=== PATIENT | female | born 1950 | race Caucasian/White ===

== ENCOUNTER 2017-12-03 19:40 | Inpatient (IN) ==
[2017-12-03] MEDS ORDERED: ONDANSETRON 4 MG/2 ML VIAL IV STA (20:46)
[2017-12-03] MEDS ORDERED: PANTOPRAZOLE 40 MG VIAL IV STA (20:46)
[2017-12-03] MEDS ORDERED: SODIUM CHLORIDE 0.9% 500 ML IV STA (20:46)
[2017-12-03 20:57] LABS: Basophils % 0.3 % (0.0-0.8); Eosinophils # 0.1 10*3/uL (0.0-0.87); Eosinophils % 0.9 % (0.00-10.9); Hematocrit 40.3 VOL% (35.7-47.0); Immature Granulocytes % 0.4 %; Immature Granulocytes Absolute 0.05 #; Lymphocytes # 2.6 10*3/uL (1.4-4.0); Lymphocytes % 22.6 % (21.3-54.2); Mean Corpuscular HGB Conc 32.3 GM/DL (32-36); Mean Corpuscular Hemoglobin 28 PG (27-34); Mean Platelet Volume 11.1 FL (9.6-12.0); Monocytes # 0.7 10*3/uL (0.11-0.8); Neutrophils % 69.8 % (38.7-73.9); Platelet Count 237 T/CUMM (130-400); Red Blood Count 4.58 MC/CUMM (3.8-5.5); Red Cell Distribution Width 13.4 % (9.3-17.3); White Blood Count 11.5 T/CUMM (4-12)
[2017-12-03 21:10] LABS: Alanine Aminotransferase 19 U/L (13-56); Albumin 3.8 G/DL (3.4-5.0); Alkaline Phosphatase 95 U/L (45-117); Aspartate Amino Transferase 17 U/L (0-37); Blood Urea Nitrogen 30 MG/DL (7-18); Calcium 9.3 MG/DL (8.5-10.1); Glucose 113 MG/DL (74-106); Osmolality,Calculated 285.4 MOS/KG (273-304); Potassium 3.5 MMOL/L (3.5-5.1); Sodium 140 MMOL/L (136-145); Total Protein 7.3 G/DL (6.4-8.3); Troponin I < 0.015 NG/ML (0.00-0.045)
[2017-12-03] MEDS ORDERED: methylPREDNISolone SOD SUC 125 MG/2 ML VIAL IV STA (21:21)
[2017-12-03 22:34] LABS: INR 0.9; PT Patient Result 9.8 SECS
[2017-12-03] MEDS ORDERED: ONDANSETRON 4 MG/2 ML VIAL IV PRN (23:45)
[2017-12-04] MEDS: SODIUM CHLORIDE 0.9% 1,000 ML IV SCH ×2 (01:02→14:25)
[2017-12-04 06:57] LABS: Basophils % 0.1 % (0.0-0.8); Hemoglobin 12.3 GM/DL (12.0-16.0); Immature Granulocytes % 0.6 %; Immature Granulocytes Absolute 0.04 #; Lymphocytes # 0.7 10*3/uL (1.4-4.0); Lymphocytes % 10.6 % (21.3-54.2); Mean Corpuscular HGB Conc 32.4 GM/DL (32-36); Mean Corpuscular Hemoglobin 28 PG (27-34); Mean Corpuscular Volume 87.8 FL (87-102); Mean Platelet Volume 10.5 FL (9.6-12.0); Monocytes % 0.6 % (1.7-12.7); Neutrophils # 6.2 10*3/uL (1.4-7.4); Neutrophils % 88.1 % (38.7-73.9); Platelet Count 211 T/CUMM (130-400); Red Blood Count 4.33 MC/CUMM (3.8-5.5); Red Cell Distribution Width 13.2 % (9.3-17.3)
[2017-12-04 07:36] LABS: Albumin 3.4 G/DL (3.4-5.0); Bilirubin,Total 0.6 MG/DL (0.2-1.0); Calcium 9.2 MG/DL (8.5-10.1); Osmolality,Calculated 286.4 MOS/KG (273-304); Potassium 4.3 MMOL/L (3.5-5.1); Total Protein 6.9 G/DL (6.4-8.3)
[2017-12-04] MEDS ORDERED: MELATONIN 1 MG PO PRN (08:06)
[2017-12-04] MEDS ORDERED: tiZANidine 4 MG TABLET PO PRN (08:06)
[2017-12-04] MEDS ORDERED: CLORAZEPATE 3.75 MG TABLET PO PRN (08:06)
[2017-12-04] MEDS: POLYCARBOPHIL 625 MG TABLET PO SCH ×2 (08:51→20:35)
[2017-12-04] MEDS: DULoxetine 30 MG CAPSULE PO SCH (08:51)
[2017-12-04] MEDS: GABAPENTIN 300 MG CAPSULE PO SCH ×2 (08:52→20:36)
[2017-12-04] MEDS: PANTOPRAZOLE 40 MG TABLET PO SCH (08:52)
[2017-12-04] MEDS: GABAPENTIN 100 MG CAPSULE PO SCH (08:52)
[2017-12-04] MEDS ORDERED: KRILL OIL 1000 MG PO SCH (09:00)
[2017-12-04] MEDS ORDERED: VILANTEROL BOTH NARES SCH (09:00)
[2017-12-04] MEDS ORDERED: MONTELUKAST 10 MG TABLET PO SCH (09:00)
[2017-12-04] MEDS ORDERED: FLUTICASONE BOTH NARES SCH (09:00)
[2017-12-04 13:05] LABS: Hematocrit 36.7 VOL% (35.7-47.0); Hemoglobin 11.9 GM/DL (12.0-16.0)
[2017-12-04] MEDS ORDERED: traMADol 50 MG TABLET PO PRN (15:51)
[2017-12-04 19:23] LABS: Hematocrit 35.1 VOL% (35.7-47.0); Hemoglobin 11.3 GM/DL (12.0-16.0)
[2017-12-04] MEDS: MONTELUKAST 10 MG TABLET PO SCH (20:36)
[2017-12-04] MEDS: PRAVASTATIN 20 MG TABLET PO SCH (20:36)
[2017-12-05] MEDS: SODIUM CHLORIDE 0.9% 1,000 ML IV SCH ×2 (03:28→16:33)
[2017-12-05 04:45] LABS: Basophils % 0.1 % (0.0-0.8); Eosinophils % 0.1 % (0.00-10.9); Hemoglobin 10.7 GM/DL (12.0-16.0); Immature Granulocytes % 0.3 %; Immature Granulocytes Absolute 0.03 #; Lymphocytes # 2.7 10*3/uL (1.4-4.0); Lymphocytes % 26.8 % (21.3-54.2); Mean Corpuscular HGB Conc 31.5 GM/DL (32-36); Mean Corpuscular Hemoglobin 28 PG (27-34); Mean Corpuscular Volume 88.8 FL (87-102); Mean Platelet Volume 11.1 FL (9.6-12.0); Monocytes # 0.6 10*3/uL (0.11-0.8); Monocytes % 5.7 % (1.7-12.7); Neutrophils # 6.7 10*3/uL (1.4-7.4); Platelet Count 196 T/CUMM (130-400); Red Blood Count 3.83 MC/CUMM (3.8-5.5); Red Cell Distribution Width 13.2 % (9.3-17.3); White Blood Count 10.1 T/CUMM (4-12)
[2017-12-05 05:06] LABS: Calcium 8.4 MG/DL (8.5-10.1); Potassium 3.6 MMOL/L (3.5-5.1)
[2017-12-05] MEDS: DULoxetine 30 MG CAPSULE PO SCH (08:53)
[2017-12-05] MEDS: POLYCARBOPHIL 625 MG TABLET PO SCH ×2 (08:53→20:48)
[2017-12-05] MEDS: GABAPENTIN 100 MG CAPSULE PO SCH (08:53)
[2017-12-05] MEDS: PANTOPRAZOLE 40 MG TABLET PO SCH (08:54)
[2017-12-05] MEDS: GABAPENTIN 300 MG CAPSULE PO SCH ×2 (08:58→20:46)
[2017-12-05 11:53] LABS: Hematocrit 34.8 VOL% (35.7-47.0); Hemoglobin 11.2 GM/DL (12.0-16.0)
[2017-12-05] MEDS: MONTELUKAST 10 MG TABLET PO SCH (20:47)
[2017-12-05] MEDS: PRAVASTATIN 20 MG TABLET PO SCH (20:47)
[2017-12-06 05:45] LABS: Basophils % 0.4 % (0.0-0.8); Eosinophils # 0.1 10*3/uL (0.0-0.87); Eosinophils % 0.7 % (0.00-10.9); Hematocrit 34.3 VOL% (35.7-47.0); Hemoglobin 10.7 GM/DL (12.0-16.0); Immature Granulocytes % 0.4 %; Immature Granulocytes Absolute 0.03 #; Lymphocytes % 36.6 % (21.3-54.2); Mean Corpuscular HGB Conc 31.2 GM/DL (32-36); Mean Corpuscular Hemoglobin 28 PG (27-34); Mean Platelet Volume 10.7 FL (9.6-12.0); Monocytes # 0.5 10*3/uL (0.11-0.8); Monocytes % 5.8 % (1.7-12.7); Neutrophils # 4.5 10*3/uL (1.4-7.4); Neutrophils % 56.1 % (38.7-73.9); Platelet Count 173 T/CUMM (130-400); Red Blood Count 3.81 MC/CUMM (3.8-5.5); Red Cell Distribution Width 13.2 % (9.3-17.3); White Blood Count 8.1 T/CUMM (4-12)
[2017-12-06] MEDS: SODIUM CHLORIDE 0.9% 1,000 ML IV SCH (06:11)
[2017-12-06] MEDS: POLYCARBOPHIL 625 MG TABLET PO SCH (10:01)
[2017-12-06] MEDS: GABAPENTIN 300 MG CAPSULE PO SCH (10:01)
[2017-12-06] MEDS: PANTOPRAZOLE 40 MG TABLET PO SCH (10:01)
[2017-12-06] MEDS: DULoxetine 30 MG CAPSULE PO SCH (10:01)
[2017-12-06] MEDS: GABAPENTIN 100 MG CAPSULE PO SCH (10:02)
[2017-12-06 11:46] VITALS: BP 120/78
== END 2017-12-06 12:58 | disposition home or self-care (01) | DRG 378 ==
LOC: N.ED 19:40 → N.EDINP 23:45 → N.3E 12-04 00:39
PROVIDERS: ADMIT Internal Medicine; ATTEND Internal Medicine

== ENCOUNTER 2021-08-29 16:05 | Observation (INO) ==
[2021-08-29 17:16] LABS: Basophils # 0.1 10*3/uL (0.0-0.2); Basophils % 0.4 % (0.0-0.8); Eosinophils # 0.5 10*3/uL (0.0-0.87); Eosinophils % 3.9 % (0.00-10.9); Hemoglobin 11.7 GM/DL (12.0-16.0); Immature Granulocytes % 0.7 %; Immature Granulocytes Absolute 0.08 #; Lymphocytes # 1.8 10*3/uL (1.4-4.0); Lymphocytes % 15.5 % (21.3-54.2); Mean Corpuscular HGB Conc 30.8 GM/DL (32-36); Mean Corpuscular Volume 88.8 FL (87-102); Mean Platelet Volume 9.9 FL (9.6-12.0); Monocytes # 0.8 10*3/uL (0.11-0.8); Neutrophils % 72.5 % (38.7-73.9); Platelet Count 234 T/CUMM (130-400); Red Blood Count 4.28 MC/CUMM (3.8-5.5); Red Cell Distribution Width 15.8 % (9.3-17.3); White Blood Count 11.5 T/CUMM (4-12)
[2021-08-29 17:54] LABS: Alanine Aminotransferase 18 U/L (13-56); Albumin 3.2 G/DL (3.4-5.0); Alkaline Phosphatase 99 U/L (45-117); Aspartate Amino Transferase 11 U/L (0-37); Bilirubin,Total < 0.39 MG/DL (0.20-1.00); Blood Urea Nitrogen 19 MG/DL (7-18); Calcium 9.1 MG/DL (8.5-10.1); Carbon Dioxide 27 MMOL/L (21-32); Chloride 112 MMOL/L (98-107); Glucose 92 MG/DL (74-106); Osmolality,Calculated 287.8 MOS/KG (273-304); Potassium 3.6 MMOL/L (3.5-5.1); Sodium 144 MMOL/L (136-145); Total Protein 6.2 G/DL (6.4-8.2)
[2021-08-29] MEDS ORDERED: methylPREDNISolone SOD SUC 125 MG/2 ML VIAL IV STA (20:48)
[2021-08-29] MEDS ORDERED: ALBUTEROL/IPRATROPIUM 3 ML NEB RESP TX STA (20:48)
[2021-08-29] MEDS ORDERED: ENOXAPARIN 100 MG/ML SYRINGE SUBCUT STA (21:46)
[2021-08-29] MEDS ORDERED: diphenhydrAMINE CAP 25 MG CAPSULE PO PRN (23:04)
[2021-08-29] MEDS ORDERED: guaiFENesin/DM ER 600-30 MG TABLET PO PRN (23:04)
[2021-08-29] MEDS ORDERED: ONDANSETRON 4 MG/2 ML VIAL IV PRN (23:04)
[2021-08-29] MEDS ORDERED: hydrALAZINE 20 MG/1 ML VIAL IV PRN (23:04)
[2021-08-29] MEDS ORDERED: NICOTINE 21 MG/24 HR PATCH TRANSDERM PRN (23:04)
[2021-08-29] MEDS ORDERED: GLUCAGON 1 MG VIAL IM PRN (23:04)
[2021-08-29] MEDS ORDERED: DEXTROSE 10% 250 ML BAG IV PRN (23:12)
[2021-08-29 23:50] LABS: Bacteria,Urine Occasional /HPF (Few); Mucus,Urine Occasional /LPF (Occasional); RBC,Urine 2 /HPF (0-4); Squamous Epithelial Cell,Urine Occasional /HPF (0-10)
[2021-08-29 23:51] LABS: Bilirubin,Urine Negative (Negative); Blood, Urine Negative (Negative); Glucose,Urine (UA) Negative (Negative); Ketones,Urine Negative (Negative); Nitrite,Urine Negative (Negative); Protein,Urine Negative (Negative); Urine Appearance Clear (Clear); Urine Color Yellow (Yellow); Urine Specific Gravity 1.015 (1.001-1.035); Urine Urobilinogen 0.2 eU/dL (<2.0); Urine pH 5.5 (4.5-8.0)
[2021-08-30] MEDS ORDERED: FLUTICASONE 50 MCG NASAL SPRAY 16 GM BOTTLE BOTH NARES PRN (00:40)
[2021-08-30] MEDS ORDERED: ALBUTEROL/IPRATROPIUM 3 ML NEB RESP TX SCH (01:00)
[2021-08-30] MEDS: ALBUTEROL 2.5 MG/3 ML NEB RESP TX SCH ×6 (01:07→23:50)
[2021-08-30 01:44] LABS: Arterial Base Excess iSTAT -3 MMOL/L (-2.5-2.5); Arterial Bicarbonate iSTAT 21.8 MMOL/L (20-26); Arterial O2 Saturation iSTAT 98 % (95-100); Arterial PCO2 iSTAT 37 MM HG (35-48); Arterial PO2 iSTAT 98 MM HG (80-95); Arterial Total CO2 iSTAT 23 MMO/L (23-27)
[2021-08-30 05:27] LABS: Basophils % 0.1 % (0.0-0.8); Hematocrit 36.4 VOL% (35.7-47.0); Hemoglobin 11.2 GM/DL (12.0-16.0); Immature Granulocytes % 0.7 %; Immature Granulocytes Absolute 0.06 #; Lymphocytes # 0.3 10*3/uL (1.4-4.0); Lymphocytes % 3.1 % (21.3-54.2); Mean Corpuscular HGB Conc 30.8 GM/DL (32-36); Mean Corpuscular Volume 88.1 FL (87-102); Mean Platelet Volume 10.3 FL (9.6-12.0); Monocytes # 0.1 10*3/uL (0.11-0.8); Monocytes % 0.6 % (1.7-12.7); Neutrophils % 95.5 % (38.7-73.9); Platelet Count 213 T/CUMM (130-400); Red Blood Count 4.13 MC/CUMM (3.8-5.5); Red Cell Distribution Width 15.6 % (9.3-17.3)
[2021-08-30 05:34] LABS: Calcium 9.6 MG/DL (8.5-10.1); Osmolality,Calculated 289.1 MOS/KG (273-304)
[2021-08-30 05:57] LABS: Hypochromia 1+; Lymphocytes 1 % (20-55); Microcytosis 1+; Total Cells Counted 100
[2021-08-30] MEDS: methylPREDNISolone SOD SUC 40 MG/1 ML VIAL IV SCH ×2 (08:55→21:28)
[2021-08-30] MEDS: PANTOPRAZOLE 40 MG TABLET PO SCH (08:55)
[2021-08-30] MEDS: POLYCARBOPHIL 625 MG TABLET PO SCH (08:55)
[2021-08-30] MEDS: GABAPENTIN 300 MG CAPSULE PO SCH ×3 (08:55→20:56)
[2021-08-30] MEDS: ROSUVASTATIN 20 MG TABLET PO SCH (08:55)
[2021-08-30] MEDS: CLOPIDOGREL 75 MG TABLET PO SCH (08:55)
[2021-08-30] MEDS: CETIRIZINE 10 MG TABLET PO SCH (08:55)
[2021-08-30] MEDS ORDERED: POLYCARBOPHIL 625 MG TABLET PO SCH (09:00)
[2021-08-30] MEDS: ACETAMINOPHEN 325 MG TABLET PO PRN (17:10)
[2021-08-30] MEDS ORDERED: DULoxetine 30 MG CAPSULE PO SCH (21:00)
[2021-08-31] MEDS: ACETAMINOPHEN 325 MG TABLET PO PRN (02:02)
[2021-08-31] MEDS: ALBUTEROL 2.5 MG/3 ML NEB RESP TX SCH ×3 (03:42→11:10)
[2021-08-31 04:50] LABS: Basophils % 0.1 % (0.0-0.8); Hematocrit 35.2 VOL% (35.7-47.0); Hemoglobin 10.9 GM/DL (12.0-16.0); Immature Granulocytes % 1.4 %; Immature Granulocytes Absolute 0.15 #; Lymphocytes # 0.5 10*3/uL (1.4-4.0); Mean Corpuscular Volume 87.8 FL (87-102); Mean Platelet Volume 10.1 FL (9.6-12.0); Monocytes # 0.2 10*3/uL (0.11-0.8); Neutrophils % 91.5 % (38.7-73.9); Platelet Count 217 T/CUMM (130-400); Red Blood Count 4.01 MC/CUMM (3.8-5.5); Red Cell Distribution Width 15.7 % (9.3-17.3); White Blood Count 10.8 T/CUMM (4-12)
[2021-08-31 05:09] LABS: Calcium 9.4 MG/DL (8.5-10.1); Potassium 4.8 MMOL/L (3.5-5.1)
[2021-08-31 05:11] LABS: Band Neutrophils 1 % (0-10); Lymphocytes 5 % (20-55); Total Cells Counted 100
[2021-08-31 05:12] LABS: Hypochromia 1+; Microcytosis 1+; Platelet Estimate Normal
[2021-08-31] MEDS: CETIRIZINE 10 MG TABLET PO SCH (09:29)
[2021-08-31] MEDS: ROSUVASTATIN 20 MG TABLET PO SCH (09:29)
[2021-08-31] MEDS: POLYCARBOPHIL 625 MG TABLET PO SCH (09:29)
[2021-08-31] MEDS: GABAPENTIN 300 MG CAPSULE PO SCH (09:29)
[2021-08-31] MEDS: methylPREDNISolone SOD SUC 40 MG/1 ML VIAL IV SCH (09:29)
[2021-08-31] MEDS: CLOPIDOGREL 75 MG TABLET PO SCH (09:29)
[2021-08-31] MEDS: PANTOPRAZOLE 40 MG TABLET PO SCH (09:29)
[2021-08-31 12:53] VITALS: BP 142/80
== END 2021-08-31 13:46 | disposition home or self-care (01) ==
LOC: N.ED 16:05 → N.EDINP 16:05 → SUATTDRO 23:04 → N.TELEN 08-30 00:16
PROVIDERS: ADMIT Family Medicine; ATTEND Internal Medicine

== ENCOUNTER 2022-03-21 10:53 | Observation (INO) ==
[2022-03-21] MEDS ORDERED: SODIUM CHLORIDE 0.9% 1,000 ML IV STA (11:14)
[2022-03-21] MEDS ORDERED: ONDANSETRON 4 MG/2 ML VIAL IV STA (11:14)
[2022-03-21 11:37] LABS: Basophils % 0.2 % (0.0-0.8); Eosinophils % 0.1 % (0.00-10.9); Hematocrit 46.4 VOL% (35.7-47.0); Hemoglobin 14.8 GM/DL (12.0-16.0); Immature Granulocytes % 0.4 %; Immature Granulocytes Absolute 0.07 #; Lymphocytes # 0.3 10*3/uL (1.4-4.0); Lymphocytes % 1.5 % (21.3-54.2); Mean Corpuscular HGB Conc 31.9 GM/DL (32-36); Mean Corpuscular Volume 87.1 FL (87-102); Mean Platelet Volume 10.5 FL (9.6-12.0); Monocytes # 0.6 10*3/uL (0.11-0.8); Monocytes % 3.7 % (1.7-12.7); Neutrophils % 94.1 % (38.7-73.9); Platelet Count 235 T/CUMM (130-400); Red Blood Count 5.33 MC/CUMM (3.8-5.5); Red Cell Distribution Width 14.9 % (9.3-17.3); White Blood Count 16.82 T/CUMM (4-12)
[2022-03-21 11:57] LABS: Albumin 3.5 G/DL (3.4-5.0); Bilirubin,Total 0.5 MG/DL (0.20-1.00); Calcium 9.7 MG/DL (8.5-10.1); Potassium 3.6 MMOL/L (3.5-5.1); Total Protein 7.5 G/DL (6.4-8.2)
[2022-03-21 12:07] LABS: Band Neutrophils 5 % (0-10); Lymphocytes 3 % (20-55); Platelet Estimate Normal; Total Cells Counted 100
[2022-03-21] MEDS ORDERED: SODIUM CHLORIDE 0.9% 1,850 ML IV ONE (12:33)
[2022-03-21] MEDS ORDERED: SODIUM CHLORIDE 0.9% 3,150 ML IV ONE (12:33)
[2022-03-21] MEDS ORDERED: PROMETHAZINE INJ 12.5 MG in SODIUM CHLORIDE 0.9% 50 ML IV STA (12:57)
[2022-03-21] MEDS ORDERED: PROMETHAZINE 25 MG/1 ML VIAL ONE (12:59)
[2022-03-21 13:02] LABS: Mucus,Urine Moderate /LPF (Occasional); RBC,Urine <1 /HPF (0-4); Squamous Epithelial Cell,Urine Occasional /HPF (0-10)
[2022-03-21 13:03] LABS: Bilirubin,Urine Negative (Negative); Blood, Urine Trace mg/dL (Negative); Glucose,Urine (UA) Negative (Negative); Ketones,Urine Negative (Negative); Nitrite,Urine Negative (Negative); Protein,Urine Negative (Negative); Urine Appearance Clear (Clear); Urine Color Yellow (Yellow); Urine Urobilinogen 0.2 eU/dL (<2.0); Urine pH 5.5 (4.5-8.0)
[2022-03-21] MEDS: PIPERACILLIN/TAZOBACTAM 3,375 MG in SODIUM CHLORIDE 0.9% 100 ML IV SCH ×2 (13:15→23:22)
[2022-03-21] MEDS: SODIUM CHLORIDE 0.9% 1,000 ML IV SCH ×2 (15:19→21:39)
[2022-03-21] MEDS ORDERED: PROMETHAZINE INJ 12.5 MG in SODIUM CHLORIDE 0.9% 50 ML IV PRN (15:30)
[2022-03-21] MEDS ORDERED: MAGNESIUM SULF RIDER 2 GM/50 ML PREMIX IV PRN (15:32)
[2022-03-21] MEDS ORDERED: POTASSIUM CHLORIDE RIDER 10 MEQ/100 ML PREMIX IV PRN (15:32)
[2022-03-21] MEDS ORDERED: MAGNESIUM SULF RIDER 4 GM/100 ML PREMIX IV PRN (15:32)
[2022-03-21] MEDS ORDERED: PROMETHAZINE 25 MG/1 ML VIAL IM PRN (20:47)
[2022-03-21] MEDS: PANTOPRAZOLE 40 MG VIAL IV SCH (21:32)
[2022-03-21] MEDS: ACETAMINOPHEN 325 MG TABLET PO PRN (21:35)
[2022-03-21] MEDS: POTASSIUM CHLORIDE 20 MEQ TABLET PO PRN (23:23)
[2022-03-22] MEDS: POTASSIUM CHLORIDE 20 MEQ TABLET PO PRN (01:49)
[2022-03-22 04:50] LABS: Basophils % 0.2 % (0.0-0.8); Eosinophils % 0.3 % (0.00-10.9); Hematocrit 38.3 VOL% (35.7-47.0); Immature Granulocytes % 0.5 %; Immature Granulocytes Absolute 0.03 #; Lymphocytes # 0.9 10*3/uL (1.4-4.0); Lymphocytes % 13.9 % (21.3-54.2); Mean Corpuscular HGB Conc 31.3 GM/DL (32-36); Mean Corpuscular Volume 90.1 FL (87-102); Mean Platelet Volume 10.7 FL (9.6-12.0); Monocytes # 0.6 10*3/uL (0.11-0.8); Monocytes % 8.9 % (1.7-12.7); Neutrophils % 76.2 % (38.7-73.9); Platelet Count 175 T/CUMM (130-400); Red Blood Count 4.25 MC/CUMM (3.8-5.5); Red Cell Distribution Width 15.1 % (9.3-17.3); White Blood Count 6.63 T/CUMM (4-12)
[2022-03-22 05:08] LABS: Calcium 8.2 MG/DL (8.5-10.1); Potassium 3.7 MMOL/L (3.5-5.1)
[2022-03-22] MEDS: SODIUM CHLORIDE 0.9% 1,000 ML IV SCH ×3 (05:21→22:41)
[2022-03-22] MEDS: PIPERACILLIN/TAZOBACTAM 3,375 MG in SODIUM CHLORIDE 0.9% 100 ML IV SCH ×3 (05:22→21:38)
[2022-03-22] MEDS: PANTOPRAZOLE 40 MG VIAL IV SCH ×2 (09:45→21:38)
[2022-03-22] MEDS ORDERED: HYDROmorphone 1 MG/1 ML SYRINGE IV PRN (16:55)
[2022-03-22] MEDS: traZODone 50 MG TABLET PO SCH (21:37)
[2022-03-22] MEDS: ROSUVASTATIN 20 MG TABLET PO SCH (21:37)
[2022-03-23] MEDS: PIPERACILLIN/TAZOBACTAM 3,375 MG in SODIUM CHLORIDE 0.9% 100 ML IV SCH ×3 (04:09→20:46)
[2022-03-23] MEDS: ONDANSETRON 4 MG/2 ML VIAL IV PRN ×2 (06:20→18:57)
[2022-03-23] MEDS: SODIUM CHLORIDE 0.9% 1,000 ML IV SCH ×3 (06:20→18:00)
[2022-03-23 06:26] LABS: Albumin 2.6 G/DL (3.4-5.0); Bilirubin,Total 0.4 MG/DL (0.20-1.00); Calcium 8.6 MG/DL (8.5-10.1); Osmolality,Calculated 286.7 MOS/KG (273-304); Potassium 3.9 MMOL/L (3.5-5.1); Total Protein 5.4 G/DL (6.4-8.2)
[2022-03-23] MEDS: LACTATED RINGERS 1,000 ML IV SCH (09:07)
[2022-03-23] MEDS ORDERED: LIDOCAINE 2% 5 ML VIAL ONE (09:58)
[2022-03-23] MEDS ORDERED: propofoL 200 MG/20 ML VIAL IV ONE (09:58)
[2022-03-23] MEDS: lisinopriL 20 MG TABLET PO SCH (11:56)
[2022-03-23] MEDS: PANTOPRAZOLE 40 MG VIAL IV SCH ×2 (11:57→20:47)
[2022-03-23] MEDS: ROSUVASTATIN 20 MG TABLET PO SCH (20:48)
[2022-03-23] MEDS: traZODone 50 MG TABLET PO SCH (20:48)
[2022-03-23] MEDS ORDERED: FLUTICASONE 50 MCG NASAL SPRAY 16 GM BOTTLE BOTH NARES PRN (22:40)
[2022-03-23] MEDS ORDERED: BENZOCAINE/MENTHOL LOZENGE 18/BOX PO PRN (22:43)
[2022-03-23] MEDS ORDERED: MONTELUKAST 10 MG TABLET PO SCH (23:15)
[2022-03-24] MEDS: SODIUM CHLORIDE 0.9% 1,000 ML IV SCH ×2 (00:01→08:25)
[2022-03-24] MEDS: ACETAMINOPHEN 325 MG TABLET PO PRN (03:56)
[2022-03-24] MEDS: PIPERACILLIN/TAZOBACTAM 3,375 MG in SODIUM CHLORIDE 0.9% 100 ML IV SCH (03:59)
[2022-03-24 05:48] LABS: Basophils % 0.2 % (0.0-0.8); Eosinophils # 0.2 10*3/uL (0.0-0.87); Hematocrit 31.8 VOL% (35.7-47.0); Hemoglobin 9.9 GM/DL (12.0-16.0); Immature Granulocytes % 0.4 %; Immature Granulocytes Absolute 0.02 #; Lymphocytes # 1.5 10*3/uL (1.4-4.0); Lymphocytes % 28.5 % (21.3-54.2); Mean Corpuscular HGB Conc 31.1 GM/DL (32-36); Mean Corpuscular Volume 89.8 FL (87-102); Mean Platelet Volume 10.3 FL (9.6-12.0); Monocytes # 0.5 10*3/uL (0.11-0.8); Monocytes % 9.1 % (1.7-12.7); Neutrophils % 58.8 % (38.7-73.9); Platelet Count 168 T/CUMM (130-400); Red Blood Count 3.54 MC/CUMM (3.8-5.5); Red Cell Distribution Width 14.7 % (9.3-17.3); White Blood Count 5.08 T/CUMM (4-12)
[2022-03-24 06:12] LABS: Alanine Aminotransferase 20 U/L (13-56); Albumin 2.6 G/DL (3.4-5.0); Alkaline Phosphatase 59 U/L (45-117); Aspartate Amino Transferase 13 U/L (0-37); Bilirubin,Total < 0.39 MG/DL (0.20-1.00); Blood Urea Nitrogen 10 MG/DL (7-18); Calcium 8.6 MG/DL (8.5-10.1); Carbon Dioxide 23 MMOL/L (21-32); Chloride 119 MMOL/L (98-107); Glucose 107 MG/DL (74-106); Osmolality,Calculated 290.4 MOS/KG (273-304); Potassium 3.9 MMOL/L (3.5-5.1); Sodium 147 MMOL/L (136-145); Total Protein 5.3 G/DL (6.4-8.2)
[2022-03-24] MEDS: LACTATED RINGERS 1,000 ML IV SCH (08:25)
[2022-03-24] MEDS: lisinopriL 20 MG TABLET PO SCH (08:38)
[2022-03-24] MEDS ORDERED: PANTOPRAZOLE 40 MG TABLET PO SCH (09:00)
[2022-03-24] MEDS ORDERED: DULoxetine 30 MG CAPSULE PO SCH (09:00)
[2022-03-24] MEDS ORDERED: CETIRIZINE 10 MG TABLET PO SCH (09:00)
[2022-03-24] MEDS ORDERED: METOPROLOL SUCCINATE XL 100 MG TABLET PO SCH (09:00)
[2022-03-24 09:06] VITALS: BP 106/73
[2022-03-26 17:06] LABS: H pylori Specimen source STOOL; Helicobacter pylori Result Not Detected
== END 2022-03-24 12:00 | disposition home health service (06) ==
LOC: N.2W 10:53 → N.ED 10:53 → N.2W 14:11
PROVIDERS: ADMIT Family Medicine; ATTEND Family Medicine